=== PATIENT | male | born 1930 | race Caucasian/White ===

== ENCOUNTER 2017-06-21 09:56 | Observation (INO) | payer MEDICARE, BC ==
[2017-06-21] MEDS ORDERED: Acetaminophen 500 MG Tab PO PRN (10:56)
--- NOTE | 2017-06-21 11:03 | PCM.HP ---
H&P History of Present Illness - General Date of Service: 06/21/17 Admit Problem/Dx: Admission Diagnosis/Problem Admission Diagnosis/Problem Shortness of breath Source of Information: Patient History Limitations: Reports: No Limitations - History of Present Illness Initial Comments - Free Text/Narative: This is an 86 yo M here for shortness of breath on exertion, lightheadedness and burning in his throat the same sensation and feeling that he had last time he had a heart attack. Patient states the symptoms have since resolved. Patient denies any symptoms currently. Patient does have an allergy to aspirin but is on Plavix. Onset of Symptoms: Reports: Sudden Duration of Symptoms: Reports: Hour(s):, Resolved Prior to Arrival Location: Reports: Neck, Chest Quality: Reports: Same as Previous Episode Severity: Moderate - Related Data Allergies/Adverse Reactions: Allergies Allergy/AdvReac Type Severity Reaction Status Date / Time aspirin AdvReac Bleeding Verified 09/18/16 13:27 Home Medications: Home Meds Terazosin [Hytrin] 5 mg PO BID 06/26/13 [History] Metoprolol Succinate 12.5 mg PO DAILY 08/24/13 [History] Acetaminophen [Tylenol Extra Strength] 500 mg PO Q6HR PRN 09/18/16 [History] Benazepril HCl [Benazepril HCl] 5 mg PO DAILY 09/18/16 [History] Clopidogrel Bisulfate [Clopidogrel] 75 mg PO DAILY 09/18/16 [History] Docusate Sodium [Colace] 100 mg PO BID 09/18/16 [History] Fluticasone/Salmeterol [Advair 100-50 Diskus] 1 inh INH BID 09/18/16 [History] Omeprazole 40 mg PO DAILY 09/18/16 [History] Past Medical History HEENT History: Reports: Impaired Vision Cardiovascular History: Reports: Hypertension Respiratory History: Reports: Pneumonia, Recurrent, SOB Gastrointestinal History: Reports: GERD - Past Surgical History Cardiovascular Surgical History: Reports: Other (See Below) Social & Family History - Family History Family Medical History: Unobtainable - Tobacco Use Smoking Status *Q: Never Smoker Years of Tobacco use: 75 Second Hand Smoke Exposure: No - Alcohol Use Days Per Week of Alcohol Use: 0 - Recreational Drug Use Recreational Drug Use: No H&P Review of Systems - Review of Systems: Review Of Systems: ROS reveals no pertinent complaints other than HPI. Exam - Exam Exam: See Below - Exam General: Alert, Oriented HEENT: PERRLA, Conjunctiva Clear, EACs Clear Neck: Supple, Trachea Midline Lungs: Clear to Auscultation, Normal Respiratory Effort Cardiovascular: Regular Rate, Regular Rhythm GI/Abdominal Exam: Normal Bowel Sounds Extremities: Normal Inspection Peripheral Pulses: 2+: Dorsalis Pedis (L), Dorsalis Pedis (R) Skin: Warm, Dry, Intact *Q Meaningful Use (ADM) - VTE *Q VTE Criteria *Q: - Stroke *Q Stroke Criteria *Q: - AMI *Q AMI Criteria *Q: - Problem List (1) Coronary arteriosclerosis, CAD SNOMED Code(s): 88414839 ICD Code: I25.10 - ATHSCL HEART DISEASE OF [place] CORONARY ARTERY W/O ANG PCTRS Status: Chronic Priority: Medium Current Visit: Yes (2) Shortness of breath SNOMED Code(s): 097942554 ICD Code: R06.02 - SHORTNESS OF BREATH Status: Acute Priority: High Current Visit: Yes (3) Chest pain, rule out acute myocardial infarction SNOMED Code(s): 06447389 ICD Code: R07.9 - CHEST PAIN, UNSPECIFIED Status: Acute Priority: High Current Visit: Yes Problem List Initiated/Reviewed/Updated: Yes Orders Last 24hrs: Active Orders 24 hr Category Date Time Status Patient Status [ADT] Routine ADT 06/21/17 10:53 Active EKG Documentation Completion [RC] ASDIRECTED Care 06/21/17 10:32 Active Oxygen Therapy [RC] PRN Care 06/21/17 10:53 Active Peripheral IV Care [RC] . DIRECTED Care 06/21/17 10:28 Active Telemetry Monitoring [Cardiac Monitoring] [RC] .As Care 06/21/17 10:58 Ordered Directed Vital Signs [RC] Q4H Care 06/21/17 10:53 Active Chest 2V [CR] Routine Exams 06/21/17 10:33 Ordered CBC WITH AUTO DIFF [HEME] Stat Lab 06/21/17 10:55 Ordered COMPREHENSIVE METABOLIC PN,CMP [CHEM] Routine Lab 06/21/17 10:28 Ordered TROPONIN I [CHEM] Routine Lab 06/21/17 10:28 Ordered TROPONIN I [CHEM] Timed Lab 06/21/17 15:30 Ordered Acetaminophen [Tylenol Extra Strength] Med 06/21/17 10:56 Ordered 500 mg PO Q6HR PRN Benazepril [Lotensin] Med 06/22/17 08:00 Ordered 5 mg PO DAILY Clopidogrel [Plavix] Med 06/22/17 08:00 Ordered 75 mg PO DAILY Docusate Sodium [Colace] Med 06/21/17 20:00 Ordered 100 mg PO BID Fluticasone/Salmeterol [Advair 100-50 Diskus] Med 06/21/17 20:00 Ordered 1 inh INH BID Metoprolol Succinate [Toprol XL] Med 06/22/17 08:00 Ordered 12.5 mg PO DAILY Omeprazole Med 06/22/17 08:00 Ordered 40 mg PO DAILY Terazosin [Hytrin] Med 06/21/17 20:00 Ordered 5 mg PO BID EKG 12 Lead [EK] Routine Ther 06/21/17 10:32 Ordered Medication Orders Acetaminophen (Tylenol Extra Strength) 500 mg PO Q6HR PRN PRN Reason: Pain Benazepril HCl (Lotensin) 5 mg PO DAILY [facility] Clopidogrel Bisulfate (Plavix) 75 mg PO DAILY [facility] Docusate Sodium (Colace) 100 mg PO BID [facility] Metoprolol Succinate (Toprol Xl) 12.5 mg PO DAILY [facility] Non-Formulary Medication (Fluticasone/Salmeterol [Advair 100-50 Diskus]) 1 inh INH BID [facility] Non-Formulary Medication (Terazosin [Hytrin]) 5 mg PO BID [facility] Omeprazole (Omeprazole) 40 mg PO DAILY [facility] Assessment/Plan Comment:: Patient admitted to observation for [place] symptoms. Labs ordered with serial troponins. F/u troponins and workup.
[2017-06-21] MEDS ORDERED: Heparin Sodium/D5W 25,000 UNITS/500 ML BAG IV SCH ×2 (11:30→11:40)
[2017-06-21 11:42] VITALS: BP 131/83
[2017-06-21] MEDS ORDERED: Heparin Sodium 5,000 UNITS/0.5 ML Syringe IVPUSH ONE (11:46)
[2017-06-21] MEDS ORDERED: Aspirin 81 MG Tab.Chew PO SCH (12:00)
--- NOTE | 2017-06-21 19:49 | CR ---
DATE OF SERVICE: 06/21/17 CLINICAL DATA: chest pain PA AND LATERAL CHEST: Comparison is made to a prior exam dated 10/13/16. The heart size is at the upper limits of normal. The aorta is calcified and ectatic. There is a mass posterior to the heart containing gas and an air-fluid level consistent with a hiatal hernia. There is persistent pleural thickening of the right apex and a persistent mass- like density that appears unchanged. There is persistent blunting of the left costophrenic angle consistent with small left pleural effusion or pleural scar. No new abnormalities. [id number] MTDD
[2017-06-21] MEDS ORDERED: SALMETEROL INH SCH (20:00)
[2017-06-21] MEDS ORDERED: TERAZOSIN 5 MG PO SCH (20:00)
[2017-06-21] MEDS ORDERED: FLUTICASONE INH SCH (20:00)
[2017-06-21] MEDS ORDERED: Docusate Sodium 100 MG Cap PO SCH (20:00)
[2017-06-22] MEDS ORDERED: Clopidogrel 75 MG Tab PO SCH (08:00)
[2017-06-22] MEDS ORDERED: Metoprolol Succinate 25 MG Tab.ER PO SCH (08:00)
[2017-06-22] MEDS ORDERED: Benazepril 10 MG Tab PO SCH (08:00)
[2017-06-22] MEDS ORDERED: Omeprazole 40 MG Cap.CR PO SCH (08:00)
--- NOTE | 2017-07-08 17:09 | PCM.DCSUM1 ---
Discharge Summary - Discharge Data Discharge Date: 06/21/17 Discharge Disposition: DC/Tfer to Acute Hospital 02 Condition: Stable - Discharge Diagnosis/Problem(s) (1) Coronary arteriosclerosis, CAD SNOMED Code(s): 98366785 ICD Code: I25.10 - ATHSCL HEART DISEASE OF [place] CORONARY ARTERY W/O ANG PCTRS Status: Chronic Priority: Medium (2) Shortness of breath SNOMED Code(s): 323476623 ICD Code: R06.02 - SHORTNESS OF BREATH Status: Acute Priority: High (3) Chest pain, rule out acute myocardial infarction SNOMED Code(s): 17645450 ICD Code: R07.9 - CHEST PAIN, UNSPECIFIED Status: Acute Priority: High (4) Elevated troponin SNOMED Code(s): 795739716, 541375231 ICD Code: R74.8 - ABNORMAL LEVELS OF OTHER SERUM ENZYMES Status: Acute Priority: High - Patient Instructions Diet: NPO Activity: Bedrest Driving: Do Not Drive - Discharge Plan Home Medications: Home Meds Terazosin [Hytrin] 5 mg PO BID 06/26/13 [History] Metoprolol Succinate 12.5 mg PO DAILY 08/24/13 [History] Acetaminophen [Tylenol Extra Strength] 500 mg PO Q6HR PRN 09/18/16 [History] Benazepril HCl [Benazepril HCl] 5 mg PO DAILY 09/18/16 [History] Clopidogrel Bisulfate [Clopidogrel] 75 mg PO DAILY 09/18/16 [History] Docusate Sodium [Colace] 100 mg PO BID 09/18/16 [History] Fluticasone/Salmeterol [Advair 100-50 Diskus] 1 inh INH BID 09/18/16 [History] Omeprazole 40 mg PO DAILY 09/18/16 [History] - Discharge Summary/Plan Comment Discharge Summary/Plan Comment: Patient transferred to [facility] for Acute coronary syndrome. Accepting provider Dr. Brad cordon by [facility]. - Patient Data Vitals - Most Recent: Last Vital Signs Temp 36.6 C 06/21/17 11:39 Pulse 71 06/21/17 11:39 Resp 16 06/21/17 11:00 BP 131/83 06/21/17 11:39 Pulse Ox 96 06/21/17 11:39 Weight - Most Recent: 74.843 kg Med Orders - Current: Current Medications Discontinued Medications Acetaminophen (Tylenol Extra Strength) 500 mg PO Q6HR PRN PRN Reason: Pain Aspirin (Aspirin) 324 mg PO DAILY [facility] Last Admin: 06/21/17 12:04 Dose: Not Given Benazepril HCl (Lotensin) 5 mg PO DAILY [facility] Clopidogrel Bisulfate (Plavix) 75 mg PO DAILY [facility] Docusate Sodium (Colace) 100 mg PO BID [facility] Heparin Sodium (Porcine) (Heparin Sodium) 4,000 units IVPUSH .BOLUS ONE Stop: 06/21/17 11:47 Last Admin: 06/21/17 11:30 Dose: 4,000 units Heparin Sodium/Dextrose (Heparin 25,000 Units In D5w 500 Ml) 25,000 units in 500 mls @ 15.6 mls/hr IV TITRATE [facility]; 12 UNITS/KG/HR PRN Reason: Protocol Last Admin: 06/21/17 11:40 Dose: 12 units/kg/hr, 15.6 mls/hr Heparin Sodium/Dextrose (Heparin 25,000 Units In D5w 500 Ml) 25,000 units in 500 mls @ 15.6 mls/hr IV TITRATE AHMET; 12 UNITS/KG/HR PRN Reason: Protocol Metoprolol Succinate (Toprol Xl) 12.5 mg PO DAILY [facility] Non-Formulary Medication (Fluticasone/Salmeterol [Advair 100-50 Diskus]) 1 inh INH BID [facility] Non-Formulary Medication (Terazosin [Hytrin]) 5 mg PO BID [facility] Omeprazole (Omeprazole) 40 mg PO DAILY [facility] *Q Meaningful Use (DIS) - VTE *Q VTE Criteria *Q: - Stroke *Q Stroke Criteria *Q: - AMI *Q AMI Criteria *Q:
== END 2017-06-21 12:40 ==
LOC: LB.CLINIC 09:56 → LB.MS 10:53
PROVIDERS: ADMIT Family Medicine; ATTEND Family Medicine
DX: I25.10 Atherosclerotic heart disease of native coronary artery without angina pectoris (principal); R06.02 Shortness of breath; R07.9 Chest pain, unspecified; R74.8 Abnormal levels of other serum enzymes; I10 Essential (primary) hypertension; K21.9 Gastro-esophageal reflux disease without esophagitis; J18.9 Pneumonia, unspecified organism; Z79.899 Other long term (current) drug therapy; Z88.8 Allergy status to other drugs, medicaments and biological substances
CPT/HCPCS: 36415; 71046; 80053; 84484; 85025; 85730; 93005; 96374; G0378; J1644; 99236

== ENCOUNTER 2017-07-11 09:28 | Emergency (ER) | payer MEDICARE, BC ==
[2017-07-11 11:18] VITALS: BP 112/64
--- NOTE | 2017-07-11 17:13 | ER ---
HISTORY OF PRESENT ILLNESS: An 86-year-old male here with rectal bleeding with bowel movements. This happened 3 times since he got up this morning. He has not had any bleeding other than with the bowel movement. The patient denies any abdominal pain that is new. He states he did have some upper abdominal discomfort for the last couple of months, but that seems to have gone away. He has not been feeling sick lately and has not been running a fever. The patient had a non-STEMI SD about 2 weeks ago and stents were placed at that time. He is currently on Plavix, Coumadin, and aspirin. The patient does have a history of being allergic to aspirin with bleeding issues. OBJECTIVE: GENERAL APPEARANCE: The patient is awake and alert. No obvious distress. VITAL SIGNS: Reviewed as listed. Blood pressure 103/66, he is afebrile. Pulse is 97. Physical exam, abdomen is soft, nontender to palpation. Bowel sounds are present. SKIN: Warm and dry. Rectal exam reveals no rectal bleeding. He does have a small external hemorrhoid that is non-thrombosed. Digital rectal exam reveals no internal hemorrhoids. LAB AND X-RAY: Labs done today include a CBC showing a hemoglobin of 10.6, which is just slightly lower than his last hemoglobin level of 11, otherwise unremarkable. PT/INR, PT is 15.2, INR 1.6 which is therapeutic. Comprehensive metabolic panel is unremarkable. CT of the abdomen and pelvis was also obtained. There was a small amount of trace of fluid in the pelvis, otherwise unremarkable findings related to the rectal bleeding. He does have an abdominal aneurysm, which is slightly larger than the previous imaging study. DIAGNOSIS: Rectal bleeding with bowel movements. TREATMENT PLAN: I feel this is due to all of the blood thinners the patient is taking. He states that he has taken some of his pills this morning. He is not sure which one he takes in the morning and which one he takes in the evening. He is to hold all anticoagulation medications that he has not taken yet today. Tomorrow he is to also hold the Coumadin and aspirin. I do want the patient to follow up in the clinic in 2 days for recheck with his primary care provider whom he tells me is Dr. Medina. Followup should be sooner if his condition gets worse. CRS/MODL /[id number]
--- NOTE | 2017-07-11 18:47 | CT ---
DATE OF SERVICE: 07/11/2017 CLINICAL DATA: Rectal bleeding. UNENHANCED ABDOMEN AND PELVIS CT: Multislice acquisition through the abdomen and pelvis without IV or oral contrast was performed. Comparison is made to a prior abdomen and pelvic CT dated 09/15/2016. There are emphysematous changes in both lower lungs with fibrotic changes bilaterally. The heart size is within normal limits. There is a small pericardial effusion. There are coronary artery calcifications. There is a moderately large hiatal hernia. There is mural thickening within the body and fundus of the stomach. This is probably related to nondistention. Gastritis or a infiltrating process should at least be considered. The liver appears normal. The gallbladder appears normal. The spleen appears normal. The pancreas is mildly atrophic but otherwise is unremarkable. The right and left adrenals are stable. There are sharply transcribed fluid density lesions in both kidneys consistent with bilateral renal cysts. They were present on the prior exam and are unchanged. No nephrocalcinosis or nephrolithiasis. No hydronephrosis or hydroureter. The appendix is not identified. No evidence of appendicitis. There is a moderate amount of gas and stool present throughout the colon. The bladder is partially fluid filled. There is bladder wall thickening. Cystitis should be considered. There are numerous metallic implants within the prostate. There is a small amount of free fluid noted within the pelvis. No free air. There are atherosclerotic changes of the abdominal aorta. There is aneurysmal dilatation of the abdominal aorta. It measures 5.3 cm in diameter. It measured 5.0 cm on the prior study. No evidence of leakage. No adenopathy. There is a compression fracture of the L1 vertebrae, unchanged from the prior study. IMPRESSION: Multiple findings as discussed above. [id number] MTDD
== END 2017-07-11 11:46 | disposition home or self-care (01) ==
LOC: LB.ED 09:28
DX: K62.5 Hemorrhage of anus and rectum (principal); Z79.82 Long term (current) use of aspirin; Z79.01 Long term (current) use of anticoagulants; Z79.02 Long term (current) use of antithrombotics/antiplatelets; Z88.6 Allergy status to analgesic agent
CPT/HCPCS: 36415; 74176; 80053; 85025; 85610; 99283; 99284-25

== ENCOUNTER 2017-07-15 16:07 | Emergency (ER) | payer MEDICARE, BC ==
--- NOTE | 2017-07-15 17:07 | EDM.PDOC ---
ED HPI GENERAL MEDICAL PROBLEM - General Chief Complaint: Cardiovascular Problem Stated Complaint: NSTEMI [place] Time Seen by Provider: 07/15/17 16:07 Source of Information: Reports: Patient History Limitations: Reports: No Limitations - History of Present Illness INITIAL COMMENTS - FREE TEXT/NARRATIVE: This is a 86yo M who left AMA from the clinic and now returns for transfer to [place] for Cardiology and ICU admit. He was seen in clinic for dizziness three times this am and mid back pain between the scapula that lasted part of the morning and resolved prior to his clinic visit. He denies any health concerns or shortness of breath but was told to come in if there were any changes. His troponin levels were elevated but EKG showed minimal change. His daughter Franchesca convinced him to return to the ER. Please see clinic note as well. Onset: Sudden Duration: Minutes:, Resolved Prior to Arrival Location: Reports: Back, Generalized Quality: Reports: Ache Severity: Mild Improves with: Reports: None Worsens with: Reports: None Associated Symptoms: Reports: No Other Symptoms - Related Data Allergies Allergy/AdvReac Type Severity Reaction Status Date / Time aspirin AdvReac Bleeding Verified 07/11/17 09:48 Home Meds: Home Meds Terazosin [Hytrin] 5 mg PO BID 06/26/13 [History] Metoprolol Succinate 25 mg PO DAILY 08/24/13 [History] Acetaminophen [Tylenol Extra Strength] 500 mg PO Q6HR PRN 09/18/16 [History] Benazepril HCl [Benazepril HCl] 5 mg PO DAILY 09/18/16 [History] Clopidogrel Bisulfate [Clopidogrel] 75 mg PO DAILY 09/18/16 [History] Docusate Sodium [Colace] 100 mg PO QPM 09/18/16 [History] Fluticasone/Salmeterol [Advair 100-50 Diskus] 1 inh INH BID 09/18/16 [History] Omeprazole 40 mg PO DAILY 09/18/16 [History] Albuterol/Ipratropium [Combivent Respimat] 1 puff INH Q6H PRN 07/11/17 [History] Aspirin [Halfprin] 81 mg PO DAILY 07/11/17 [History] Furosemide [Furosemide] 20 mg PO DAILY 07/11/17 [History] Nitroglycerin [Nitrostat] 0.4 mg SL ASDIRECTED 07/11/17 [History] Polyethylene Glycol 3350 [MiraLAX] 17 gm PO DAILY PRN 07/11/17 [History] Warfarin Sodium [Jantoven] 5 mg PO ASDIRECTED 07/11/17 [History] atorvaSTATin [Lipitor] 40 mg PO BEDTIME 07/11/17 [History] Past Medical History HEENT History: Reports: Impaired Vision Cardiovascular History: Reports: Afib, Heart Failure, High Cholesterol, Hypertension, Stents Respiratory History: Reports: COPD, SOB Gastrointestinal History: Reports: GERD Musculoskeletal History: Reports: Fracture Hematologic History: Reports: Anemia Oncologic (Cancer) History: Reports: Lung - Past Surgical History Cardiovascular Surgical History: Reports: Coronary Artery Stent Musculoskeletal Surgical History: Reports: Knee Replacement Social & Family History - Family History Family Medical History: Unobtainable - Tobacco Use Smoking Status *Q: Light Tobacco Smoker Years of Tobacco use: 75 Packs/Tins Daily: 0.1 Second Hand Smoke Exposure: No - Caffeine Use Caffeine Use: Reports: Coffee - Alcohol Use Days Per Week of Alcohol Use: 0 - Recreational Drug Use Recreational Drug Use: No ED ROS GENERAL - Review of Systems Review Of Systems: ROS reveals no pertinent complaints other than HPI. ED EXAM, GENERAL - Physical Exam Exam: See Below Exam Limited By: No Limitations General Appearance: Alert, WD/WN, No Apparent Distress Ears: Normal External Exam, Normal Canal, Normal TMs, Hearing Loss Nose: Normal Inspection Throat/Mouth: Normal Inspection Head: Atraumatic, Normocephalic Neck: Normal Inspection, Supple, Non-Tender Respiratory/Chest: No Respiratory Distress, Lungs Clear, Normal Breath Sounds Cardiovascular: Normal Peripheral Pulses, Regular Rate, Rhythm GI/Abdominal: Normal Bowel Sounds Back Exam: Normal Inspection, Full Range of Motion Extremities: Normal Inspection Neurological: Alert, Oriented, CN II-XII Intact Psychiatric: Normal Affect, Normal Mood Skin Exam: Warm, Dry, Intact Departure - Departure Time of Disposition: 16:45 Disposition: DC/Tfer to Acute Hospital 02 Reason for Transfer *Q: Primary PCI Indicated Condition: Undetermined Clinical Impression: Acute coronary syndrome Aortic aneurysm Qualifiers: Aortic location: thoracoabdominal aorta Presence of rupture: without rupture Qualified Code(s): 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 Mazariegos [facility]. Dr. Bennett consulted. Discussed plan with daughter and per daughter patient has been off his anticoagulant for 2-3 days due to GI bleeding.
== END 2017-07-15 16:40 ==
LOC: LB.ED 16:07
DX: I24.9 Acute ischemic heart disease, unspecified (principal); I71.6 Thoracoabdominal aortic aneurysm, without rupture; I11.0 Hypertensive heart disease with heart failure; I50.9 Heart failure, unspecified; I48.91 Unspecified atrial fibrillation; F17.210 Nicotine dependence, cigarettes, uncomplicated; E78.00 Pure hypercholesterolemia, unspecified; J44.9 Chronic obstructive pulmonary disease, unspecified; Z79.01 Long term (current) use of anticoagulants; Z79.899 Other long term (current) drug therapy; Z88.6 Allergy status to analgesic agent
CPT/HCPCS: 99284; 99285; A0425; A0429

== ENCOUNTER 2017-08-04 10:32 | Emergency (ER) | payer MEDICARE, BC ==
[2017-08-04] MEDS ORDERED: Sodium Chloride 0.9% 10 ML Syringe FLUSH PRN (11:16)
--- NOTE | 2017-08-04 11:16 | EDM.PDOC ---
ED HPI GENERAL MEDICAL PROBLEM - General Stated Complaint: AK Time Seen by Provider: 08/04/17 10:35 Source of Information: Reports: Patient History Limitations: Reports: No Limitations - History of Present Illness INITIAL COMMENTS - FREE TEXT/NARRATIVE: According to patient, he claims he has been doing cardiac rehab every day and was feeling better. He claims that he had some chest pain last night and claims he had chest pain in the morning today. Apparently he has been dizziness since today morning. He did come to cardiac rehab and could not stand because of dizziness. His BP was 90/50mmhg. He was sent to clinic. He continues to complaint of dizziness even when he is sitting. No nausea or vomiting. no diaphoresis.He did have workup in the clinic. His CBC showed hemoglobin of 9.7, his EKG shows rate of 63 with multiple PVCs. Also his Troponin done today is elevated at 0.551. Pt claims that he has neck pain more around the nape, which he had last time he was transferred. Pt was moved to emergency room. Bilateral Upper Neck Pain Score (Numeric/FACES): 5 - Related Data Allergies Allergy/AdvReac Type Severity Reaction Status Date / Time aspirin AdvReac Bleeding Verified 07/11/17 09:48 Home Meds: Home Meds Terazosin [Hytrin] 5 mg PO BID 06/26/13 [History] Metoprolol Succinate 25 mg PO DAILY 08/24/13 [History] Acetaminophen [Tylenol Extra Strength] 500 mg PO Q6HR PRN 09/18/16 [History] Benazepril HCl [Benazepril HCl] 5 mg PO DAILY 09/18/16 [History] Clopidogrel Bisulfate [Clopidogrel] 75 mg PO DAILY 09/18/16 [History] Docusate Sodium [Colace] 100 mg PO QPM 09/18/16 [History] Fluticasone/Salmeterol [Advair 100-50 Diskus] 1 inh INH BID 09/18/16 [History] Omeprazole 40 mg PO DAILY 09/18/16 [History] Albuterol/Ipratropium [Combivent Respimat] 1 puff INH Q6H PRN 07/11/17 [History] Aspirin [Halfprin] 81 mg PO DAILY 07/11/17 [History] Furosemide [Furosemide] 20 mg PO DAILY 07/11/17 [History] Nitroglycerin [Nitrostat] 0.4 mg SL ASDIRECTED 07/11/17 [History] Polyethylene Glycol 3350 [MiraLAX] 17 gm PO DAILY PRN 07/11/17 [History] Warfarin Sodium [Jantoven] 5 mg PO ASDIRECTED 07/11/17 [History] atorvaSTATin [Lipitor] 40 mg PO BEDTIME 07/11/17 [History] Past Medical History HEENT History: Reports: Impaired Vision Cardiovascular History: Reports: Afib, Heart Failure, High Cholesterol, Hypertension, Stents Respiratory History: Reports: COPD, SOB Gastrointestinal History: Reports: GERD Musculoskeletal History: Reports: Fracture Hematologic History: Reports: Anemia Oncologic (Cancer) History: Reports: Lung - Past Surgical History Cardiovascular Surgical History: Reports: Coronary Artery Stent Musculoskeletal Surgical History: Reports: Knee Replacement Social & Family History - Family History Family Medical History: Unobtainable - Tobacco Use Smoking Status *Q: Light Tobacco Smoker Years of Tobacco use: 75 Packs/Tins Daily: 0.1 Second Hand Smoke Exposure: No - Caffeine Use Caffeine Use: Reports: Coffee - Alcohol Use Days Per Week of Alcohol Use: 0 - Recreational Drug Use Recreational Drug Use: No ED ROS GENERAL - Review of Systems Review Of Systems: See Below Constitutional: Denies: Fever, Chills, Malaise, Weakness HEENT: Denies: Rhinitis, Sinus Problem, Throat Pain, Throat Swelling Respiratory: Denies: Shortness of Breath, Cough, Sputum Cardiovascular: 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 Denies: Joint Pain, Joint Swelling Skin: Denies: Mottled, Pallor Neurological: Reports: Dizziness. Denies: Confusion, Headache, Numbness, Tingling, Weakness Psychiatric: Denies: Agitation, Anxiety, Confusion, Cravings ED EXAM, GENERAL - Physical Exam Exam: See Below Exam Limited By: No Limitations General Appearance: Alert, WD/WN, No Apparent Distress Eye Exam: Bilateral Eye: EOMI, PERRL Ears: Normal External Exam, Normal Canal, Hearing Grossly Normal, Normal TMs Ear Exam: Bilateral Ear: Auricle Normal, Canal Normal, TM normal Nose: Normal Inspection, Normal Mucosa, No Blood Throat/Mouth: Normal Inspection, Normal Lips, Normal Teeth, Normal Gums, Normal Oropharynx, Normal Voice, No Airway Compromise Head: Atraumatic, Normocephalic Neck: Normal Inspection, Supple, Non-Tender, Full Range of Motion Respiratory/Chest: No Respiratory Distress, Lungs Clear, Normal Breath Sounds, No Accessory Muscle Use, Chest Non-Tender Cardiovascular: Normal Peripheral Pulses, Regular Rate, Rhythm, No Edema, No Gallop, No JVD, No Murmur, No Rub Peripheral Pulses: 2+: Carotid (L), Carotid (R), Radial (L), Radial (R) GI/Abdominal: Normal Bowel Sounds, Soft, Non-Tender, No Organomegaly, No Distention, No Abnormal Bruit, No Mass Extremities: Normal Inspection, Normal Range of Motion, Non-Tender, Normal Capillary Refill, No Pedal Edema Neurological: Alert, Oriented, CN II-XII Intact, Normal Cognition, Normal Gait, Normal Reflexes, No Motor/Sensory Deficits EKG INTERPRETATION EKG Date: 08/04/17 Rhythm: NSR [place]: Normal P-Wave: Present QRS: Normal ST-T: Normal QT: Normal EKG Interpretation Comments: multiple PVCs Course - Vital Signs Text/Narrative:: Pt's Troponin was 0.551 and he did have chest pain last night and this morning. he has been having vague neck pain, which he claims he had when he recently had heart problems. His Chest Xray appears normal. His CBC shows hemoglobin of 9.7 . His INR was 1.4. I did contact [facility] and discuss patient with Dr. Brumfield ladle liner helper and discuss patient with him. His recommendation was to transfuse 1 unit of PRBC slowly, and have patient transferred to [place]. I have discussed patient with Dr. Kasia Vera, hospitalist transportation clerk who has agreed to accept patient. Pt has remained stable in the emergency room. His PRBC has been started. On lunchroom monitor he does throw frequents PVCs. He has been hemodynamically stable. Pt is planned for transfer by [facility] ambulance. Durther care per Dr. Vera and Dr. Brumfield. Last Recorded V/S: Last Vital Signs Temp 99.1 F 08/04/17 13:35 Pulse 62 08/04/17 13:35 Resp 14 08/04/17 13:35 BP 144/72 H 08/04/17 13:35 Pulse Ox 97 08/04/17 11:29 - Orders/Labs/Meds Orders: Active Orders 24 hr Category Date Time Status Cardiac Monitoring [RC] .As Directed Care 08/04/17 11:17 Active Oxygen Therapy Adult [Oxygen Therapy, ED] [RC] Care 08/04/17 11:25 Active ASDIRECTED Chest 1V Frontal [CR] Stat Exams 08/04/17 11:11 Taken Sodium Chloride 0.9% [Normal Saline] 1,000 ml Med 08/04/17 11:30 Active IV ASDIRECTED Sodium Chloride 0.9% [Saline Flush] Med 08/04/17 11:16 Active 10 ml FLUSH ASDIRECTED PRN Peripheral IV Insertion Adult [OM.PC] Routine Oth 08/04/17 11:16 Ordered Medication Orders Sodium Chloride (Normal Saline) 1,000 mls @ 30 mls/hr IV ASDIRECTED AHMET Sodium Chloride (Saline Flush) 10 ml FLUSH ASDIRECTED PRN PRN Reason: Keep Vein Open Labs: Laboratory Tests 08/04/17 08/04/17 Range/Units 10:58 10:59 Blood Type O NEGATIVE O NEGATIVE Gel Antibody Screen Negative Negative Crossmatch See Detail Meds: Medications Generic Name Dose Route Start Last Admin Trade Name Freq PRN Reason Stop Dose Admin Sodium Chloride 1,000 mls @ 30 mls/hr 08/04/17 11:30 Normal Saline IV ASDIRECTED AHMET Sodium Chloride 10 ml 08/04/17 11:16 Saline Flush FLUSH ASDIRECTED PRN Keep Vein Open Departure - Departure Time of Disposition: 15:00 Disposition: DC/Tfer to Acute Hospital 02 Condition: Fair Clinical Impression: Elevated troponin - Discharge Information Referrals: Jovanni Singh MD [Primary Care Provider] - - Problem List & Annotations (1) Elevated troponin SNOMED Code(s): 246155080, 168113498 Code(s): R74.8 - ABNORMAL LEVELS OF OTHER SERUM ENZYMES Status: Acute Priority: High Current Visit: Yes - Problem List Review Problem List Initiated/Reviewed/Updated: Yes - My Orders Last 24 Hours: My Active Orders 08/04/17 11:11 Chest 1V Frontal [CR] Stat 08/04/17 11:16 Sodium Chloride 0.9% [Saline Flush] 10 ml FLUSH ASDIRECTED PRN Peripheral IV Insertion Adult [OM.PC] Routine 08/04/17 11:17 Cardiac Monitoring [RC] .As Directed 08/04/17 11:25 Oxygen Therapy Adult [Oxygen Therapy, ED] [RC] ASDIRECTED 08/04/17 11:30 Sodium Chloride 0.9% [Normal Saline] 1,000 ml IV ASDIRECTED - Assessment/Plan Last 24 Hours: My Active Orders 08/04/17 11:11 Chest 1V Frontal [CR] Stat 08/04/17 11:16 Sodium Chloride 0.9% [Saline Flush] 10 ml FLUSH ASDIRECTED PRN Peripheral IV Insertion Adult [OM.PC] Routine 08/04/17 11:17 Cardiac Monitoring [RC] .As Directed 08/04/17 11:25 Oxygen Therapy Adult [Oxygen Therapy, ED] [RC] ASDIRECTED 08/04/17 11:30 Sodium Chloride 0.9% [Normal Saline] 1,000 ml IV ASDIRECTED Assessment:: Elevated troponin Plan: Pt's Troponin was 0.551 and he did have chest pain last night and this morning. he has been having vague neck pain, which he claims he had when he recently had heart problems. His Chest Xray appears normal. His CBC shows hemoglobin of 9.7 . His INR was 1.4. I did contact [facility] and discuss patient with Dr. Brumfield ladle liner helper and discuss patient with him. His recommendation was to transfuse 1 unit of PRBC slowly, and have patient transferred to [place]. I have discussed patient with Dr. Kasia Vera, hospitalist transportation clerk who has agreed to accept patient. Pt has remained stable in the emergency room. His PRBC has been started. On lunchroom monitor he does throw frequents PVCs. He has been hemodynamically stable. Pt is planned for transfer by [facility] ambulance. Durther care per Dr. Vera and Dr. Brumfield.
[2017-08-04] MEDS: Sodium Chloride 0.9% 1,000 ML IV SCH (12:30)
[2017-08-04 14:51] VITALS: BP 154/72
--- NOTE | 2017-08-04 17:41 | CR ---
DATE OF SERVICE: 08/04/17 CLINICAL DATA: chest pain AP PORTABLE CHEST: Comparison is made to a prior exam dated 07/15/17. The heart size is stable. There is a persistent mass-like density in the right apex, unchanged from the prior exam. The lungs are otherwise clear. No acute abnormalities. [id number] [facility]
== END 2017-08-05 15:30 ==
LOC: LB.ED 10:32
DX: R74.8 Abnormal levels of other serum enzymes (principal); I11.0 Hypertensive heart disease with heart failure; I50.9 Heart failure, unspecified; F17.210 Nicotine dependence, cigarettes, uncomplicated; Z88.6 Allergy status to analgesic agent; Z79.899 Other long term (current) drug therapy; Z79.82 Long term (current) use of aspirin
CPT/HCPCS: 36415; 36430; 71045; 86850; 86900; 86901; 86920; 86922; 96360; 96361; 99284; 99285-25; J7040; P9016

== ENCOUNTER 2017-10-11 09:28 | Emergency (ER) | payer MEDICARE, BC ==
[2017-10-11] MEDS ORDERED: Sodium Chloride 0.9% 500 ML IV ONE (09:34)
--- NOTE | 2017-10-11 09:54 | EDM.PDOC ---
ED HPI GENERAL MEDICAL PROBLEM - General Chief Complaint: Cardiovascular Problem Stated Complaint: Black tarry stools for 5 days Time Seen by Provider: 10/11/17 09:35 Source of Information: Reports: Patient History Limitations: Reports: No Limitations - History of Present Illness INITIAL COMMENTS - FREE TEXT/NARRATIVE: This is a 86yo M who initially presented to clinic and was brought to the ER for further work up and evaluation due to lightheadedness and low blood pressure. He states he just is not feeling well and can't fully describe his symptoms. He states he has been having very dark black tarry stools for the past 5 days. He denies any Chest pain and states he may be a little short of breath. He just does not feel right and feels some pressure of the neck. Onset: Gradual Duration: Day(s):, Getting Worse Location: Reports: Generalized Severity: Severe Improves with: Reports: None Worsens with: Reports: Movement Associated Symptoms: Reports: Weakness - Related Data Allergies Allergy/AdvReac Type Severity Reaction Status Date / Time aspirin AdvReac Bleeding Verified 07/11/17 09:48 Home Meds: Home Meds Terazosin [Hytrin] 5 mg PO BID 06/26/13 [History] Metoprolol Succinate 25 mg PO DAILY 08/24/13 [History] Acetaminophen [Tylenol Extra Strength] 500 mg PO Q6HR PRN 09/18/16 [History] Benazepril HCl 5 mg PO DAILY 09/18/16 [History] Clopidogrel Bisulfate [Clopidogrel] 75 mg PO DAILY 09/18/16 [History] Docusate Sodium [Colace] 100 mg PO QPM 09/18/16 [History] Fluticasone/Salmeterol [Advair 100-50 Diskus] 1 inh INH BID 09/18/16 [History] Omeprazole 40 mg PO DAILY 09/18/16 [History] Albuterol/Ipratropium [Combivent Respimat] 1 puff INH Q6H PRN 07/11/17 [History] Aspirin [Halfprin] 81 mg PO DAILY 07/11/17 [History] Furosemide 20 mg PO DAILY 07/11/17 [History] Nitroglycerin [Nitrostat] 0.4 mg SL ASDIRECTED 07/11/17 [History] Polyethylene Glycol 3350 [MiraLAX] 17 gm PO DAILY PRN 07/11/17 [History] Warfarin Sodium [Jantoven] 5 mg PO ASDIRECTED 07/11/17 [History] atorvaSTATin [Lipitor] 40 mg PO BEDTIME 07/11/17 [History] Past Medical History HEENT History: Reports: Impaired Vision Cardiovascular History: Reports: Afib, Heart Failure, High Cholesterol, Hypertension, Stents Respiratory History: Reports: COPD, SOB Gastrointestinal History: Reports: GERD Musculoskeletal History: Reports: Fracture Hematologic History: Reports: Anemia Oncologic (Cancer) History: Reports: Lung - Past Surgical History Cardiovascular Surgical History: Reports: Coronary Artery Stent Musculoskeletal Surgical History: Reports: Knee Replacement Social & Family History - Family History Family Medical History: Unobtainable - Tobacco Use Smoking Status *Q: Light Tobacco Smoker Years of Tobacco use: 75 Packs/Tins Daily: 0.1 Used Tobacco, but Quit: No Second Hand Smoke Exposure: No - Caffeine Use Caffeine Use: Reports: Coffee - Alcohol Use Days Per Week of Alcohol Use: 0 - Recreational Drug Use Recreational Drug Use: No ED ROS GENERAL - Review of Systems Review Of Systems: ROS reveals no pertinent complaints other than HPI. ED EXAM, GI/ABD - Physical Exam Exam: See Below Exam Limited By: No Limitations General Appearance: Alert, Mild Distress, Thin Eyes: Bilateral: EOMI, Pale Conjunctiva Ears: Normal External Exam Nose: Normal Inspection Throat/Mouth: Normal Inspection Head: Atraumatic, Normocephalic Neck: Normal Inspection Respiratory/Chest: No Respiratory Distress, Lungs Clear, Normal Breath Sounds Cardiovascular: Normal Peripheral Pulses, No Edema, No JVD, Extra Beats GI/Abdominal Exam: Normal Bowel Sounds Back Exam: Normal Inspection Extremities: Normal Inspection, Normal Range of Motion, Non-Tender, No Pedal Edema, Normal Capillary Refill Neurological: Alert, Oriented, CN II-XII Intact, Normal Cognition, Normal Reflexes, No Motor/Sensory Deficits Psychiatric: Normal Affect, Normal Mood Skin Exam: Dry, Intact, Cool, Pallor Course - Orders/Labs/Meds Orders: Active Orders 24 hr Category Date Time Status EKG Documentation Completion [RC] ASDIRECTED Care 10/11/17 09:33 Active Chest 1V Frontal [CR] Stat Exams 10/11/17 09:54 Taken RED BLOOD CELLS LP [BBK] Stat Lab 10/11/17 11:07 Ordered TYPE AND SCREEN [BBK] Stat Lab 04/30/18 11:07 Ordered Labs: Laboratory Tests 10/11/17 10/11/17 Range/Units 09:40 09:40 WBC 6.5 (4.0-11.0) K/uL RBC 3.27 L (4.50-6.50) M/uL Hgb 8.6 L D (13.0-18.0) g/dL Hct 28.3 L D (40.0-54.0) % MCV 87 (76-96) fL MCH 26.3 L (27.0-32.0) pg MCHC 30.4 L (31.0-35.0) g/dL RDW 16.4 H (11.0-16.0) % Plt Count 288 D (150-400) K/uL MPV 9.8 (6.0-10.0) fL Neut % (Auto) 72.1 H (45.0-70.0) % Lymph % (Auto) 17.2 L (20.0-40.0) % Elliott % (Auto) 7.4 (3.0-10.0) % Eos % (Auto) 2.8 (1.0-5.0) % Baso % (Auto) 0.5 (0.0-0.5) % Neut # (Auto) 4.69 (2.00-7.50) K/uL Lymph # (Auto) 1.12 L (1.50-4.00) K/uL Elliott # (Auto) 0.48 (0.20-0.80) K/uL Eos # (Auto) 0.18 (0.04-0.40) K/uL Baso # (Auto) 0.03 (0.02-0.10) K/uL Sodium 141 (136-145) mmol/L Potassium 3.9 (3.5-5.1) mmol/L Chloride 108 H (98-107) mmol/L Carbon Dioxide 27.0 (21.0-32.0) mmol/L Anion Gap 9.9 (5.0-15.0) mmol/L BUN 42 H D (8-26) mg/dL Creatinine 1.56 H D (0.70-1.30) mg/dL Est Cr Clr Drug Dosing TNP Estimated GFR (MDRD) 42 L (>60) MLS/MIN BUN/Creatinine Ratio 26.9 H (6-25) Glucose 130 H (74-100) mg/dL Calcium 8.1 L (8.5-10.1) mg/dL Total Bilirubin 0.4 (0.0-1.0) mg/dL AST 19 (15-37) U/L ALT 23 (12-78) U/L Alkaline Phosphatase 91 (46-116) U/L Troponin I 0.398 H* D (0.000-0.060) ng/mL B-Natriuretic Peptide 1226 H D (0-450) pg/mL Total Protein 6.9 (6.4-8.2) g/dL Albumin 3.4 (3.4-5.0) g/dL Globulin 3.5 (2.2-4.2) g/dL Albumin/Globulin Ratio 1.0 (0.8-2.0) Meds: Medications Discontinued Medications Generic Name Dose Route Start Last Admin Trade Name Freq PRN Reason Stop Dose Admin Sodium Chloride 500 mls @ 500 mls/hr 10/11/17 09:34 Normal Saline IV 10/11/17 10:33 .BOLUS ONE Pantoprazole Sodium 80 mg 10/11/17 11:09 Protonix Iv IVPUSH 10/11/17 11:10 .BOLUS ONE Pantoprazole Sodium Confirm 10/11/17 11:28 Protonix Iv Administered 10/11/17 11:29 Dose 80 mg .ROUTE .STK-MED ONE Departure - Departure Time of Disposition: 12:00 Disposition: DC/Tfer to Acute Hospital 02 Condition: Fair Clinical Impression: Troponin level elevated, Light-headedness, Melena Anemia Qualifiers: Anemia type: other cause Other causes of anemia: other cause, not classified Qualified Code(s): D64.89 - Other specified anemias Hypotension Qualifiers: Hypotension type: orthostatic hypotension Qualified Code(s): I95.1 - Orthostatic hypotension - Discharge Information Referrals: PCP,None [Primary Care Provider] - Forms: ED Department Discharge - Problem List & Annotations (1) Elevated troponin SNOMED Code(s): 069613045, 332351434, 742723549 Code(s): R74.8 - ABNORMAL LEVELS OF OTHER SERUM ENZYMES Status: Acute Priority: High Current Visit: Yes (2) Anemia SNOMED Code(s): 683254614 Code(s): D64.9 - ANEMIA, UNSPECIFIED Status: Acute Current Visit: Yes Qualifiers: Anemia type: other cause Other causes of anemia: other cause, not classified Qualified Code(s): D64.89 - Other specified anemias (3) Hypotension SNOMED Code(s): 40673135 Code(s): I95.9 - HYPOTENSION, UNSPECIFIED Status: Acute Current Visit: Yes Qualifiers: Hypotension type: orthostatic hypotension Qualified Code(s): I95.1 - Orthostatic hypotension (4) Light-headedness SNOMED Code(s): 414365700 Code(s): R42 - DIZZINESS AND GIDDINESS Status: Acute Current Visit: Yes (5) Melena SNOMED Code(s): 3558886 Code(s): K92.1 - MELENA Status: Acute Current Visit: Yes - Problem List Review Problem List Initiated/Reviewed/Updated: Yes - My Orders Last 24 Hours: My Active Orders 10/11/17 09:33 EKG Documentation Completion [RC] ASDIRECTED 10/11/17 09:54 Chest 1V Frontal [CR] Stat 10/11/17 11:07 RED BLOOD CELLS LP [BBK] Stat TYPE AND SCREEN [BBK] Stat - Assessment/Plan Last 24 Hours: My Active Orders 10/11/17 09:33 EKG Documentation Completion [RC] ASDIRECTED 10/11/17 09:54 Chest 1V Frontal [CR] Stat 10/11/17 11:07 RED BLOOD CELLS LP [BBK] Stat TYPE AND SCREEN [BBK] Stat Plan: Patient to be transferred to ICU bed [address] Aguilar and Dr. Brumfield. Patient was being typed and cross matched but due to pending transfer the type and cross match would delay transfer more than 30 min. We will continue gentle hydration as patient is stable and alert. Protonix IV given. No heparin drip started due to dark melena for the past 5 days. (Patient has been on Plavix and Jantoven and has been taking his medications as scheduled.)
[2017-10-11] MEDS ORDERED: Pantoprazole 40 MG Vial IVPUSH ONE (11:09)
[2017-10-11] MEDS ORDERED: Pantoprazole 40 MG Vial ONE (11:28)
--- NOTE | 2017-10-11 14:22 | CR ---
DATE OF SERVICE: 10/11/17 CLINICAL DATA: Shortness of breath PA CHEST: Comparison made to a prior exam dated 08/04/17. The heart size is stable. There is a moderate size hiatal hernia noted posterior to the heart. There is calcification of the aortic arch and thoracic aorta. There is a persistent mass like density in the right apex with apical pleural thickening on the right. It does not appear significantly changed from the prior exam. No new lung abnormalities. No pneumothorax. No pleural effusions. [id number] [facility]
== END 2017-10-11 12:05 ==
LOC: LB.ED 09:28
DX: I95.1 Orthostatic hypotension (principal); K92.1 Melena; D64.89 Other specified anemias; R74.8 Abnormal levels of other serum enzymes; F17.210 Nicotine dependence, cigarettes, uncomplicated; I11.0 Hypertensive heart disease with heart failure; I50.9 Heart failure, unspecified; K21.9 Gastro-esophageal reflux disease without esophagitis; I48.91 Unspecified atrial fibrillation; E78.00 Pure hypercholesterolemia, unspecified; Z79.01 Long term (current) use of anticoagulants; Z79.899 Other long term (current) drug therapy; Z88.6 Allergy status to analgesic agent
CPT/HCPCS: 36415; 71045; 80053; 83880; 84484; 85025; 93005; 99284; 99285-25

== ENCOUNTER 2018-08-08 07:52 | Emergency (ER) | payer BC, MEDICARE ==
[2018-08-08 08:14] VITALS: BP 143/72
--- NOTE | 2018-08-08 08:29 | EDM.PDOC ---
ED HPI GENERAL MEDICAL PROBLEM - General Chief Complaint: General Stated Complaint: NOT FEEL WELL Time Seen by Provider: 08/08/18 08:10 Source of Information: Reports: Patient, RN History Limitations: Reports: No Limitations - History of Present Illness INITIAL COMMENTS - FREE TEXT/NARRATIVE: 87 yr male presents with congestion and cough. States he had a tough weekend. States he had an appointment with cardiology last week and doesn't need to return for 1 year. He had an appointment last week on Wednesday and was started on Amoxicillin, and thinks he is taking it. States he was visiting his in skilled nursing care in [place] last week. general Pain Score (Numeric/FACES): 3 - Related Data Allergies Allergy/AdvReac Type Severity Reaction Status Date / Time aspirin AdvReac Bleeding Verified 03/26/18 11:08 Home Meds: Home Meds Terazosin [Hytrin] 5 mg PO BID 06/26/13 [History] Metoprolol Succinate 25 mg PO DAILY 08/24/13 [History] Acetaminophen [Tylenol Extra Strength] 500 mg PO Q6HR PRN 09/18/16 [History] Benazepril HCl 5 mg PO DAILY 09/18/16 [History] Clopidogrel Bisulfate [Clopidogrel] 75 mg PO DAILY 09/18/16 [History] Docusate Sodium [Colace] 100 mg PO QPM 09/18/16 [History] Fluticasone/Salmeterol [Advair 100-50 Diskus] 1 inh INH BID 09/18/16 [History] Omeprazole 40 mg PO DAILY 09/18/16 [History] Albuterol/Ipratropium [Combivent Respimat] 1 puff INH Q6H PRN 07/11/17 [History] Aspirin [Halfprin] 81 mg PO DAILY 07/11/17 [History] Furosemide 20 mg PO DAILY 07/11/17 [History] Nitroglycerin [Nitrostat] 0.4 mg SL ASDIRECTED 07/11/17 [History] Polyethylene Glycol 3350 [MiraLAX] 17 gm PO DAILY PRN 07/11/17 [History] Warfarin Sodium [Jantoven] 5 mg PO ASDIRECTED 07/11/17 [History] atorvaSTATin [Lipitor] 40 mg PO BEDTIME 07/11/17 [History] Albuterol/Ipratropium [DuoNeb 3.0-0.5 MG/3 ML] 3 ml .XX QID 14 Days #56 neb [Rx] Oseltamivir [Tamiflu] 75 mg PO BID 5 Days #10 cap 08/08/18 [Rx] Past Medical History HEENT History: Reports: Impaired Vision Cardiovascular History: Reports: Afib, Heart Failure, High Cholesterol, Hypertension, Stents Respiratory History: Reports: COPD, SOB Gastrointestinal History: Reports: GERD Musculoskeletal History: Reports: Fracture Hematologic History: Reports: Anemia Oncologic (Cancer) History: Reports: Lung - Past Surgical History Cardiovascular Surgical History: Reports: Coronary Artery Stent Musculoskeletal Surgical History: Reports: Knee Replacement Social & Family History - Family History Family Medical History: Unobtainable - Caffeine Use Caffeine Use: Reports: Coffee ED ROS GENERAL - Review of Systems Review Of Systems: See Below Constitutional: Reports: Fatigue HEENT: Reports: Glasses, Other (hard of hearing) Respiratory: Reports: Shortness of Breath, Wheezing, Cough Cardiovascular: Reports: No Symptoms. Denies: Chest Pain GI/Abdominal: Reports: No Symptoms. Denies: Abdominal Pain Musculoskeletal: Reports: Other (right shoulder muscle twitching) Skin: Reports: No Symptoms Neurological: Reports: No Symptoms Psychiatric: Reports: No Symptoms ED EXAM, GENERAL - Physical Exam Exam: See Below Exam Limited By: No Limitations General Appearance: Alert, No Apparent Distress Ears: Hearing Loss Nose: Normal Inspection, Normal Mucosa Throat/Mouth: Normal Voice, No Airway Compromise Head: Atraumatic, Normocephalic Neck: Normal Inspection, Supple, Non-Tender Respiratory/Chest: Rhonchi, Wheezing Cardiovascular: Normal Peripheral Pulses, Regular Rate, Rhythm, No Edema Peripheral Pulses: 2+: Radial (L), Radial (R) GI/Abdominal: Soft, Non-Tender Extremities: Normal Range of Motion, Non-Tender, No Pedal Edema Neurological: Alert, Oriented, Normal Cognition Psychiatric: Normal Affect, Normal Mood Skin Exam: Warm, Dry, Normal Color Course - Vital Signs Last Recorded V/S: Last Vital Signs Temp 99.7 F 08/08/18 08:08 Pulse 94 08/08/18 08:08 Resp 22 H 08/08/18 08:08 BP 143/72 H 08/08/18 08:08 Pulse Ox 95 08/08/18 08:08 - Orders/Labs/Meds Labs: Laboratory Tests 08/08/18 08/08/18 08/08/18 Range/Units 08:30 08:30 08:30 WBC 7.7 (4.0-11.0) K/uL RBC 4.02 L (4.50-6.50) M/uL Hgb 12.8 L (13.0-18.0) g/dL Hct 40.3 (40.0-54.0) % MCV 100 H (76-96) fL MCH 31.8 (27.0-32.0) pg MCHC 31.8 (31.0-35.0) g/dL RDW 13.5 (11.0-16.0) % Plt Count 132 L D (150-400) K/uL MPV 9.8 (6.0-10.0) fL Neut % (Auto) 81.2 H (45.0-70.0) % Lymph % (Auto) 9.2 L (20.0-40.0) % [place] % (Auto) 8.2 (3.0-10.0) % Eos % (Auto) 1.0 (1.0-5.0) % Baso % (Auto) 0.4 (0.0-0.5) % Neut # (Auto) 6.26 (2.00-7.50) K/uL Lymph # (Auto) 0.71 L (1.50-4.00) K/uL [place] # (Auto) 0.63 (0.20-0.80) K/uL Eos # (Auto) 0.08 (0.04-0.40) K/uL Baso # (Auto) 0.03 (0.02-0.10) K/uL Sodium 141 (136-145) mmol/L Potassium 3.9 (3.5-5.1) mmol/L Chloride 103 (98-107) mmol/L Carbon Dioxide 28.8 (21.0-32.0) mmol/L Anion Gap 13.1 (5.0-15.0) mmol/L BUN 34 H D (8-26) mg/dL Creatinine 1.53 H (0.70-1.30) mg/dL Est Cr Clr Drug Dosing TNP Estimated GFR (MDRD) 43 L (>60) MLS/MIN BUN/Creatinine Ratio 22.2 (6-25) Glucose 113 H (74-100) mg/dL Calcium 8.4 L (8.5-10.1) mg/dL Total Bilirubin 1.1 H D (0.0-1.0) mg/dL AST 25 (15-37) U/L ALT 22 (12-78) U/L Alkaline Phosphatase 70 (46-116) U/L B-Natriuretic Peptide 1997 H D (0-450) pg/mL Total Protein 6.7 (6.4-8.2) g/dL Albumin 3.2 L (3.4-5.0) g/dL Globulin 3.5 (2.2-4.2) g/dL Albumin/Globulin Ratio 0.9 (0.8-2.0) Meds: Medications Discontinued Medications Generic Name Dose Route Start Last Admin Trade Name Freq PRN Reason Stop Dose Admin Albuterol/Ipratropium 3 ml 08/08/18 08:29 08/08/18 08:34 Duoneb 3.0-0.5 Mg/3 Ml NEB 3 ml Q2H PRN Administration Wheezing - Re-Assessments/Exams Free Text/Narrative Re-Assessment/Exam: 08/08/18 09:56 Influenza A is positive today. Chest x-ray reviewed and no acute intrathoracic disease. He is being followed by oncology and cardiology. Will start pt on Tamiflu 1 tablet bid and nebulizer qid for 2 weeks dispensed. Recommend follow-up in week later this week. Pt is resting well and states understanding. Departure - Departure Time of Disposition: 10:35 Disposition: Home, Self-Care 01 Condition: Good Clinical Impression: Influenza A - Discharge Information *COPY OF PRESCRIPTION DRUG MONITORING REPORT IN PATIENT DOLLY: Not Applicable Prescriptions: Albuterol/Ipratropium [DuoNeb 3.0-0.5 MG/3 ML] 3 ml .XX QID 14 Days #56 neb Oseltamivir [Tamiflu] 75 mg PO BID 5 Days #10 cap Instructions: Oseltamivir capsules, Albuterol; Ipratropium solution for inhalation Referrals: PCP,None [Primary Care Provider] - Forms: ED Department Discharge Additional Instructions: Take the Tamiflu twice a day until the medication is gone. Use the nebulizers (breathing treatments) as needed for shortness of breath 4 times a day. If you have any questions or concerns please call the clinic [phone] or the hospital [phone]. - Assessment/Plan Plan: Influenza A is positive today. Chest x-ray reviewed and no acute intrathoracic disease. He is being followed by oncology and cardiology. Will start pt on Tamiflu 1 tablet bid and nebulizer qid for 2 weeks dispensed. Recommend follow- up in week later this week. Pt is resting well and states understanding. F/U in clinic in 3-4 days.
[2018-08-08] MEDS: Albuterol/Ipratropium 3.0-0.5 MG/3 ML Neb Soln NEB PRN (08:34)
--- NOTE | 2018-08-08 09:33 | CR ---
DATE OF SERVICE: 08/08/18 CLINICAL DATA: congestion, cough PA AND LATERAL CHEST: Comparison made to a prior exam dated 10/11/17. The heart size is stable. There is a cardiac pacer overlying the left chest with the distal pacer wires in the region of the right atrium and right ventricle. The aorta is calcified and ectatic. There is a moderate-sized hiatal hernia noted posterior to the heart. There is pleural thickening and fibrotic changes noted in the right apex. The lungs are otherwise clear. No significant changes from the prior study. No evidence of acute intrathoracic disease. [id number] [facility]
== END 2018-08-08 10:35 | disposition home or self-care (01) ==
LOC: LB.ED 07:52
DX: J10.1 Influenza due to other identified influenza virus with other respiratory manifestations (principal); I11.0 Hypertensive heart disease with heart failure; I50.9 Heart failure, unspecified; K21.9 Gastro-esophageal reflux disease without esophagitis; I48.91 Unspecified atrial fibrillation; Z79.899 Other long term (current) drug therapy; Z88.6 Allergy status to analgesic agent
CPT/HCPCS: 36415; 71046; 80053; 83880; 85025; 87804; 99284-25; J7620-GY

== ENCOUNTER 2018-08-14 09:52 | Emergency (ER) | payer MEDICARE ==
--- NOTE | 2018-08-14 10:39 | EDM.PDOC ---
ED HPI GENERAL MEDICAL PROBLEM - General Stated Complaint: flu sx, weakness Time Seen by Provider: 08/14/18 10:00 Source of Information: Reports: Patient History Limitations: Reports: No Limitations - History of Present Illness INITIAL COMMENTS - FREE TEXT/NARRATIVE: According to patient he claims he has been having nasal congestion and cough going on for past 2 wks now. Pt claims he is getting thick mucoid yellow sputum when he cough. No wheezing or shortness of breath. Claims he has been tired of coughing. No chest pain. Had fever twice in the past 2 wks. No bodyache. Pt claims that he was seen last Wednesday and he had positive infleunza A and treated with tamiflu. Does c/o sore stomach. No bloody stools or dark colored stools.No nausea or vomiting or diarrhea. Duration: Week(s): (2 wks) Location: Reports: Chest Quality: Reports: Other (cough) Severity: Moderate Improves with: Reports: None Worsens with: Reports: None Associated Symptoms: Reports: Cough, Fever/Chills, Weakness. Denies: Confusion , Chest Pain, Diaphoresis, Headaches, Nausea/Vomiting, Rash, Seizure, Shortness of Breath, Syncope - Related Data Allergies Allergy/AdvReac Type Severity Reaction Status Date / Time aspirin AdvReac Bleeding Verified 03/26/18 11:08 Home Meds: Home Meds Terazosin [Hytrin] 5 mg PO BID 06/26/13 [History] Metoprolol Succinate 25 mg PO DAILY 08/24/13 [History] Acetaminophen [Tylenol Extra Strength] 500 mg PO Q6HR PRN 09/18/16 [History] Benazepril HCl 5 mg PO DAILY 09/18/16 [History] Clopidogrel Bisulfate [Clopidogrel] 75 mg PO DAILY 09/18/16 [History] Docusate Sodium [Colace] 100 mg PO QPM 09/18/16 [History] Fluticasone/Salmeterol [Advair 100-50 Diskus] 1 inh INH BID 09/18/16 [History] Omeprazole 40 mg PO DAILY 09/18/16 [History] Albuterol/Ipratropium [Combivent Respimat] 1 puff INH Q6H PRN 07/11/17 [History] Aspirin [Halfprin] 81 mg PO DAILY 07/11/17 [History] Furosemide 20 mg PO DAILY 07/11/17 [History] Nitroglycerin [Nitrostat] 0.4 mg SL ASDIRECTED 07/11/17 [History] Polyethylene Glycol 3350 [MiraLAX] 17 gm PO DAILY PRN 07/11/17 [History] Warfarin Sodium [Jantoven] 5 mg PO ASDIRECTED 07/11/17 [History] atorvaSTATin [Lipitor] 40 mg PO BEDTIME 07/11/17 [History] Albuterol/Ipratropium [DuoNeb 3.0-0.5 MG/3 ML] 3 ml .XX QID 14 Days #56 neb [Rx] Oseltamivir [Tamiflu] 75 mg PO BID 5 Days #10 cap 08/08/18 [Rx] Past Medical History HEENT History: Reports: Impaired Vision Cardiovascular History: Reports: Afib, Heart Failure, High Cholesterol, Hypertension, Stents Respiratory History: Reports: COPD, SOB Gastrointestinal History: Reports: GERD Musculoskeletal History: Reports: Fracture Hematologic History: Reports: Anemia Oncologic (Cancer) History: Reports: Lung - Past Surgical History Cardiovascular Surgical History: Reports: Coronary Artery Stent Musculoskeletal Surgical History: Reports: Knee Replacement Social & Family History - Family History Family Medical History: Unobtainable - Caffeine Use Caffeine Use: Reports: Coffee ED ROS GENERAL - Review of Systems Review Of Systems: See Below Constitutional: Reports: Fever, Weakness. Denies: Chills, Malaise HEENT: Reports: Rhinitis. Denies: Ear Pain, Eye Discharge, Throat Pain, Throat Swelling Respiratory: Reports: Cough, Sputum. Denies: Shortness of Breath, Wheezing, Pleuritic Chest Pain, Hemoptysis Cardiovascular: Denies: Chest Pain, Lightheadedness GI/Abdominal: Reports: Abdominal Pain, Difficulty Swallowing, Flatus. Denies: Black Stool, Constipation, Diarrhea, Hematochezia, Melena, Nausea, Vomiting : Denies: Dysuria, Flank Pain Musculoskeletal: Denies: Joint Pain, Joint Swelling, Muscle Pain, Muscle Stiffness Skin: Denies: Bruising, Pruritis, Rash Neurological: Denies: Confusion, Dizziness, Headache, Numbness, Tingling ED EXAM, GENERAL - Physical Exam Exam: See Below Exam Limited By: No Limitations General Appearance: Alert, WD/WN, No Apparent Distress, Other (Ill appearance) Eye Exam: Bilateral Eye: EOMI, PERRL Ears: Normal External Exam, Normal Canal, Hearing Grossly Normal, Normal TMs Ear Exam: Bilateral Ear: Auricle Normal, Canal Normal, TM normal Nose: Normal Mucosa, No Blood, Nasal Drainage (mucoid ) Throat/Mouth: Normal Inspection, Normal Lips, Normal Teeth, Normal Gums, Normal Oropharynx, Normal Voice, No Airway Compromise Head: Atraumatic, Normocephalic Neck: Normal Inspection, Supple, Non-Tender, Full Range of Motion Respiratory/Chest: No Respiratory Distress, Lungs Clear, Normal Breath Sounds, No Accessory Muscle Use, Chest Non-Tender, Other (conducted upper airways sounds heard over lung gerber.) Cardiovascular: Normal Peripheral Pulses, Regular Rate, Rhythm, No Edema, No Gallop, No JVD, No Murmur, No Rub GI/Abdominal: Normal Bowel Sounds, Soft, No Organomegaly, No Distention, No Abnormal Bruit, No Mass, Other (mild epigastric discomfort) Back Exam: Normal Inspection, Full Range of Motion, NT Extremities: Normal Inspection, Normal Range of Motion, Non-Tender, Normal Capillary Refill, No Pedal Edema Neurological: Alert, Oriented, CN II-XII Intact, Normal Cognition, Normal Gait Course - Vital Signs Text/Narrative:: Pt's clinical exam is normal. His lungs are clear, other than conducted upper airway sounds. His SPO2 has been stable on room air. His CBC shows white count of 7K. His CMP appears normal and stable. Flu test is negative. His chest x-ray shows some chronic scarring of the lung. No new infiltrate noted. Pt has had on going bronchitis for 2 wks now. He did have positive influenza A, last week and was teated with Amox for same cough. As there is no clinical sign of bacterial infection, I have advised steam inhalations 2-3 times daily, and also Robitussin Dm 1-2 tsp every 6 hrs to help with expectorations. Rest and hydration. Followup in clinic next week, if symptoms worsen. - Orders/Labs/Meds Orders: Active Orders 24 hr Category Date Time Status Chest 2V [CR] Stat Exams 08/14/18 10:17 Ordered Labs: Laboratory Tests 08/14/18 08/14/18 Range/Units 10:20 10:20 WBC 7.8 (4.0-11.0) K/uL RBC 3.67 L (4.50-6.50) M/uL Hgb 11.9 L (13.0-18.0) g/dL Hct 36.4 L (40.0-54.0) % MCV 99 H (76-96) fL MCH 32.4 H (27.0-32.0) pg MCHC 32.7 (31.0-35.0) g/dL RDW 13.4 (11.0-16.0) % Plt Count 205 D (150-400) K/uL MPV 10.1 H (6.0-10.0) fL Neut % (Auto) 83.3 H (45.0-70.0) % Lymph % (Auto) 8.5 L (20.0-40.0) % [place] % (Auto) 7.5 (3.0-10.0) % Eos % (Auto) 0.4 L (1.0-5.0) % Baso % (Auto) 0.3 (0.0-0.5) % Neut # (Auto) 6.53 (2.00-7.50) K/uL Lymph # (Auto) 0.67 L (1.50-4.00) K/uL [place] # (Auto) 0.59 (0.20-0.80) K/uL Eos # (Auto) 0.03 L (0.04-0.40) K/uL Baso # (Auto) 0.02 (0.02-0.10) K/uL Sodium 141 (136-145) mmol/L Potassium 3.8 (3.5-5.1) mmol/L Chloride 103 (98-107) mmol/L Carbon Dioxide 28.3 (21.0-32.0) mmol/L Anion Gap 13.5 (5.0-15.0) mmol/L BUN 26 D (8-26) mg/dL Creatinine 1.44 H (0.70-1.30) mg/dL Est Cr Clr Drug Dosing TNP Estimated GFR (MDRD) 46 L (>60) MLS/MIN BUN/Creatinine Ratio 18.1 (6-25) Glucose 155 H D (74-100) mg/dL Calcium 8.1 L (8.5-10.1) mg/dL Total Bilirubin 0.8 (0.0-1.0) mg/dL AST 21 (15-37) U/L ALT 22 (12-78) U/L Alkaline Phosphatase 63 (46-116) U/L Total Protein 6.6 (6.4-8.2) g/dL Albumin 2.7 L (3.4-5.0) g/dL Globulin 3.9 (2.2-4.2) g/dL Albumin/Globulin Ratio 0.7 L (0.8-2.0) Departure - Departure Time of Disposition: 11:15 Disposition: Home, Self-Care 01 Condition: Fair Clinical Impression: Bronchitis - Discharge Information *PRESCRIPTION DRUG MONITORING PROGRAM REVIEWED*: Not Applicable *COPY OF PRESCRIPTION DRUG MONITORING REPORT IN PATIENT DOLLY: Not Applicable Referrals: PCP,None [Primary Care Provider] - Additional Instructions: Pt's clinical exam is normal. His lungs are clear, other than conducted upper airway sounds. His SPO2 has been stable on room air. His CBC shows white count of 7K. His CMP appears normal and stable. Flu test is negative. His chest x-ray shows some chronic scarring of the lung. No new infiltrate noted. Pt has had on going bronchitis for 2 wks now. He did have positive influenza A, last week and was teated with Amox for same cough. As there is no clinical sign of bacterial infection, I have advised steam inhalations 2-3 times daily, and also Robitussin Dm 1-2 tsp every 6 hrs to help with expectorations. Rest and hydration. Followup in clinic next week, if symptoms worsen. - Problem List & Annotations (1) Bronchitis SNOMED Code(s): 99668441 Code(s): J40 - BRONCHITIS, NOT SPECIFIED ACUTE OR CHRONIC Status: Acute Current Visit: Yes - Problem List Review Problem List Initiated/Reviewed/Updated: Yes - My Orders Last 24 Hours: My Active Orders 08/14/18 10:17 Chest 2V [CR] Stat - Assessment/Plan Last 24 Hours: My Active Orders 08/14/18 10:17 Chest 2V [CR] Stat Assessment:: Bronchitis Plan: Pt's clinical exam is normal. His lungs are clear, other than conducted upper airway sounds. His SPO2 has been stable on room air. His CBC shows white count of 7K. His CMP appears normal and stable. Flu test is negative. His chest x-ray shows some chronic scarring of the lung. No new infiltrate noted. Pt has had on going bronchitis for 2 wks now. He did have positive influenza A, last week and was teated with Amox for same cough. As there is no clinical sign of bacterial infection, I have advised steam inhalations 2-3 times daily, and also Robitussin Dm 1-2 tsp every 6 hrs to help with expectorations. Rest and hydration. Followup in clinic next week, if symptoms worsen.
--- NOTE | 2018-08-15 09:13 | CR ---
DATE OF SERVICE: 08/14/18 CLINICAL DATA: cough PA AND LATERAL CHEST: Comparison is made to a prior exam dated 08/08/18. The heart and lungs are stable. No evidence of acute intrathoracic disease. [id number] [facility]
== END 2018-08-14 11:10 | disposition home or self-care (01) ==
LOC: LB.ED 09:52
DX: J40 Bronchitis, not specified as acute or chronic (principal); I11.0 Hypertensive heart disease with heart failure; I50.9 Heart failure, unspecified; I48.91 Unspecified atrial fibrillation; Z88.8 Allergy status to other drugs, medicaments and biological substances; Z79.899 Other long term (current) drug therapy; Z95.5 Presence of coronary angioplasty implant and graft
CPT/HCPCS: 36415; 71046; 80053; 85025; 87804; 99282; 99283-25

== ENCOUNTER 2019-02-03 17:01 | Emergency (ER) | payer MEDICARE ==
[2019-02-03] MEDS ORDERED: Phenazopyridine 100 MG Tab ONE (17:15)
[2019-02-03 17:47] VITALS: BP 136/74
--- NOTE | 2019-02-04 10:06 | EDM.PDOC ---
ED HPI GENERAL MEDICAL PROBLEM - General Chief Complaint: General Stated Complaint: CONSTIPATION; PAIN Time Seen by Provider: 02/03/19 17:15 Source of Information: Reports: Patient History Limitations: Reports: No Limitations - History of Present Illness INITIAL COMMENTS - FREE TEXT/NARRATIVE: According to patient he has been constipated for past 3 days now. HE was seen in the clinic today and started on miralax , which he went home and took. He claims he has bee having suprapubic pain for past 1-2 days now. Also he has difficulty urinating and burning to urinate. No fever or chills. No nausea or vomiting. No back pain. Pt has had prostate cancer 25 years ago and treated with radiation therapy. He has had bloody urine and has followup with his urologist on Wednesday for possible cystocopy. He is on cipro 500mg BID per his urologist. Onset Date: 02/02/19 Location: Reports: Abdomen Quality: Reports: Ache Severity: Mild Improves with: Reports: None Worsens with: Reports: None Associated Symptoms: Denies: Confusion, Chest Pain, Cough, Diaphoresis, Fever/ Chills, Headaches, Rash, Seizure, Shortness of Breath, Syncope - Related Data Allergies Allergy/AdvReac Type Severity Reaction Status Date / Time aspirin AdvReac Bleeding Verified 03/26/18 11:08 Home Meds: Home Meds Terazosin [Hytrin] 5 mg PO BID 06/26/13 [History] Metoprolol Succinate 25 mg PO DAILY 08/24/13 [History] Acetaminophen [Tylenol Extra Strength] 500 mg PO Q6HR PRN 09/18/16 [History] Benazepril HCl 5 mg PO DAILY 09/18/16 [History] Clopidogrel Bisulfate [Clopidogrel] 75 mg PO DAILY 09/18/16 [History] Docusate Sodium [Colace] 100 mg PO QPM 09/18/16 [History] Fluticasone/Salmeterol [Advair 100-50 Diskus] 1 inh INH BID 09/18/16 [History] Omeprazole 40 mg PO DAILY 09/18/16 [History] Albuterol/Ipratropium [Combivent Respimat] 1 puff INH Q6H PRN 07/11/17 [History] Aspirin [Halfprin] 81 mg PO DAILY 07/11/17 [History] Furosemide 20 mg PO DAILY 07/11/17 [History] Nitroglycerin [Nitrostat] 0.4 mg SL ASDIRECTED 07/11/17 [History] Polyethylene Glycol 3350 [MiraLAX] 17 gm PO DAILY PRN 07/11/17 [History] Warfarin Sodium [Jantoven] 5 mg PO ASDIRECTED 07/11/17 [History] atorvaSTATin [Lipitor] 40 mg PO BEDTIME 07/11/17 [History] Albuterol/Ipratropium [DuoNeb 3.0-0.5 MG/3 ML] 3 ml .XX QID 14 Days #56 neb [Rx] Past Medical History HEENT History: Reports: Impaired Vision Cardiovascular History: Reports: Afib, Heart Failure, High Cholesterol, Hypertension, Stents Respiratory History: Reports: COPD, SOB Gastrointestinal History: Reports: GERD Musculoskeletal History: Reports: Fracture Hematologic History: Reports: Anemia Oncologic (Cancer) History: Reports: Lung - Past Surgical History Cardiovascular Surgical History: Reports: Coronary Artery Stent Musculoskeletal Surgical History: Reports: Knee Replacement Social & Family History - Family History Family Medical History: Unobtainable - Caffeine Use Caffeine Use: Reports: Coffee ED ROS GENERAL - Review of Systems Review Of Systems: See Below Constitutional: Denies: Fever, Chills HEENT: Denies: Rhinitis, Throat Pain Respiratory: Denies: Cough, Sputum Cardiovascular: Denies: Chest Pain, Lightheadedness GI/Abdominal: Reports: Abdominal Pain. Denies: Nausea, Vomiting : Reports: Dysuria, Frequency, Urgency Musculoskeletal: Denies: Joint Pain, Joint Swelling Skin: Denies: Bruising, Pruritis, Rash ED EXAM, GENERAL - Physical Exam Exam: See Below Exam Limited By: No Limitations General Appearance: Alert, WD/WN, No Apparent Distress, Anxious Eye Exam: Bilateral Eye: EOMI, PERRL Ears: Normal External Exam, Normal Canal, Hearing Grossly Normal, Normal TMs Ear Exam: Bilateral Ear: Auricle Normal, Canal Normal, TM normal Nose: Normal Inspection, Normal Mucosa, No Blood Throat/Mouth: Normal Inspection, Normal Lips, Normal Teeth, Normal Gums, Normal Oropharynx, Normal Voice, No Airway Compromise Head: Atraumatic, Normocephalic Neck: Normal Inspection, Supple, Non-Tender, Full Range of Motion Respiratory/Chest: No Respiratory Distress, Lungs Clear, Normal Breath Sounds, No Accessory Muscle Use, Chest Non-Tender Cardiovascular: Normal Peripheral Pulses, Regular Rate, Rhythm, No Edema, No Gallop, No JVD, No Murmur, No Rub GI/Abdominal: Normal Bowel Sounds, Soft, No Organomegaly, No Distention, No Abnormal Bruit, No Mass, Tender (suprapubic tenderness) Course - Vital Signs Text/Narrative:: Pt has had constipation for which he has been started on Miralax today and patient has taken. He has had dysuria and urgency , has to strain to urinate. He did give sample of urine and his UA shows blood, but now WBCs. HE has had hematuria for past few months and has been scheduled for possible cystoscopy by his urologist on Wednesday. Hence he was started on Pyridium 100mg BID for 3 days to help with dysuria.Advised to drink plenty of fluids. Continue cipro. Followup with his urologist on Wednesday. Last Recorded V/S: Last Vital Signs Temp 98.7 F 02/03/19 17:30 Pulse 66 02/03/19 17:30 Resp 20 02/03/19 17:30 BP 136/74 02/03/19 17:30 Pulse Ox 95 02/03/19 17:30 - Orders/Labs/Meds Labs: Laboratory Tests 02/03/19 Range/Units 17:26 Urine Color Other Urine Appearance Slightly cloudy (CLEAR) Urine pH 7.5 (5.0-8.0) Ur Specific [place] 1.020 (1.003-1.030) Urine Protein 100 H (NEGATIVE) mg/dL Urine Glucose (UA) Negative (NEGATIVE) mg/dL Urine Ketones Negative (NEGATIVE) mg/dL Urine Occult Blood Large H (NEGATIVE) Urine Nitrite Negative (NEGATIVE) Urine Bilirubin Negative (NEGATIVE) Urine Urobilinogen 1.0 (0.2-1.0) E.U./dL Ur Leukocyte Esterase Negative (NEGATIVE) Urine RBC Semi-packed H /HPF Urine WBC 5-10 H /HPF Ur Squamous Epith Cells Few /HPF Urine Bacteria Not seen /HPF Meds: Medications Discontinued Medications Generic Name Dose Route Start Last Admin Trade Name Freq PRN Reason Stop Dose Admin Phenazopyridine HCl 1,200 mg 02/03/19 17:15 Pyridium .ROUTE 02/03/19 17:16 .STK-MED ONE Departure - Departure Time of Disposition: 18:00 Disposition: Home, Self-Care 01 Condition: Fair Clinical Impression: Constipation, Dysuria - Discharge Information *PRESCRIPTION DRUG MONITORING PROGRAM REVIEWED*: Not Applicable *COPY OF PRESCRIPTION DRUG MONITORING REPORT IN PATIENT DOLLY: Not Applicable Instructions: Interstitial Cystitis, Cystoscopy Additional Instructions: Take Pyridium 100mg twice a day for 3 days. Continue to take Cipro as prescribed and follow up in [facility] for Cystoscopy. Return to ER or clinic if symptoms increase or any other c/o. - Problem List & Annotations (1) Hypotension SNOMED Code(s): 13006493 Code(s): I95.9 - HYPOTENSION, UNSPECIFIED Status: Acute Qualifiers: Hypotension type: orthostatic hypotension Qualified Code(s): I95.1 - Orthostatic hypotension (2) Constipation SNOMED Code(s): 28948221 Code(s): K59.00 - CONSTIPATION, UNSPECIFIED Status: Acute - Problem List Review Problem List Initiated/Reviewed/Updated: Yes - Assessment/Plan Assessment:: Constipation With Dysuria Plan: Pt has had constipation for which he has been started on Miralax today and patient has taken. He has had dysuria and urgency , has to strain to urinate. He did give sample of urine and his UA shows blood, but now WBCs. HE has had hematuria for past few months and has been scheduled for possible cystoscopy by his urologist on Wednesday. Hence he was started on Pyridium 100mg BID for 3 days to help with dysuria.Advised to drink plenty of fluids. Continue cipro. Followup with his urologist on Wednesday.
== END 2019-02-03 17:41 | disposition home or self-care (01) ==
LOC: LB.ED 17:01
DX: K59.00 Constipation, unspecified (principal); R30.0 Dysuria; I11.0 Hypertensive heart disease with heart failure; I50.9 Heart failure, unspecified; I48.91 Unspecified atrial fibrillation; J44.9 Chronic obstructive pulmonary disease, unspecified; Z85.46 Personal history of malignant neoplasm of prostate; Z88.6 Allergy status to analgesic agent; Z79.899 Other long term (current) drug therapy; Z79.82 Long term (current) use of aspirin; Z79.01 Long term (current) use of anticoagulants
CPT/HCPCS: 81001; 99283; A9270-GY

== ENCOUNTER 2019-02-03 23:58 | Emergency (ER) | payer MEDICARE ==
[2019-02-04 00:41] VITALS: BP 152/82
[2019-02-04] MEDS ORDERED: Lidocaine 2% Jelly 10 ML Urojet ONE (00:45)
--- NOTE | 2019-02-08 13:54 | EDM.PDOC ---
ED HPI GENERAL MEDICAL PROBLEM - General Chief Complaint: Genitourinary Problem Stated Complaint: can not urinate Time Seen by Provider: 02/04/19 00:15 Source of Information: Reports: Patient History Limitations: Reports: No Limitations - History of Present Illness INITIAL COMMENTS - FREE TEXT/NARRATIVE: Pt was seen earlier tonight with c/o suprapubic discomfort and dysuria. His urine showed blood , for which he has urologist appointment on Wednesday. Pt was discharged on Pyridium for his dysuria and discharged. He is here now as he has not been able to urinate since he went home. He feels like his bladder is distended. He claims his bladder has been spasming and very painful. Has urge to urinate , but cannot urinate. Also he has been constipated for past 3 days, but since he went home he has had small amounts of stools. Onset: Today Onset Date: 02/03/19 Location: Reports: Abdomen Quality: Reports: Ache Severity: Moderate Improves with: Reports: None Worsens with: Reports: None Associated Symptoms: Denies: Confusion, Chest Pain, Cough, Diaphoresis, Fever/ Chills, Headaches, Nausea/Vomiting, Rash, Seizure, Shortness of Breath, Syncope , Weakness Abdomen Pain Score (Numeric/FACES): 10 - Related Data Allergies Allergy/AdvReac Type Severity Reaction Status Date / Time aspirin AdvReac Bleeding Verified 03/26/18 11:08 Home Meds: Home Meds Terazosin [Hytrin] 5 mg PO BID 06/26/13 [History] Metoprolol Succinate 25 mg PO DAILY 08/24/13 [History] Acetaminophen [Tylenol Extra Strength] 500 mg PO Q6HR PRN 09/18/16 [History] Benazepril HCl 5 mg PO DAILY 09/18/16 [History] Clopidogrel Bisulfate [Clopidogrel] 75 mg PO DAILY 09/18/16 [History] Docusate Sodium [Colace] 100 mg PO QPM 09/18/16 [History] Fluticasone/Salmeterol [Advair 100-50 Diskus] 1 inh INH BID 09/18/16 [History] Omeprazole 40 mg PO DAILY 09/18/16 [History] Albuterol/Ipratropium [Combivent Respimat] 1 puff INH Q6H PRN 01/28/18 [History] Aspirin [Halfprin] 81 mg PO DAILY 07/11/17 [History] Furosemide 20 mg PO DAILY 07/11/17 [History] Nitroglycerin [Nitrostat] 0.4 mg SL ASDIRECTED 07/11/17 [History] Polyethylene Glycol 3350 [MiraLAX] 17 gm PO DAILY PRN 07/11/17 [History] Warfarin Sodium [Jantoven] 5 mg PO ASDIRECTED 07/11/17 [History] atorvaSTATin [Lipitor] 40 mg PO BEDTIME 07/11/17 [History] Albuterol/Ipratropium [DuoNeb 3.0-0.5 MG/3 ML] 3 ml .XX QID 14 Days #56 neb [Rx] Past Medical History HEENT History: Reports: Impaired Vision Cardiovascular History: Reports: Afib, Heart Failure, High Cholesterol, Hypertension, Stents Respiratory History: Reports: COPD, SOB Gastrointestinal History: Reports: GERD Musculoskeletal History: Reports: Fracture Hematologic History: Reports: Anemia Oncologic (Cancer) History: Reports: Lung - Past Surgical History Cardiovascular Surgical History: Reports: Coronary Artery Stent Musculoskeletal Surgical History: Reports: Knee Replacement Social & Family History - Family History Family Medical History: Unobtainable - Caffeine Use Caffeine Use: Reports: Coffee ED ROS GENERAL - Review of Systems Review Of Systems: See Below Constitutional: Denies: Fever, Chills HEENT: Denies: Ear Pain, Rhinitis, Throat Pain Respiratory: Denies: Shortness of Breath, Cough, Sputum Cardiovascular: Denies: Chest Pain, Dyspnea on Exertion, Edema, Lightheadedness , Syncope Endocrine: Denies: Fatigue GI/Abdominal: Reports: Abdominal Pain. Denies: Nausea, Vomiting : Reports: Dysuria, Urgency, Urinary Retention Musculoskeletal: Denies: Joint Pain, Joint Swelling Skin: Denies: Bruising, Pruritis, Rash Neurological: Denies: Dizziness, Headache, Numbness Psychiatric: Reports: Agitation. Denies: Anxiety, Confusion ED EXAM, GENERAL - Physical Exam Exam: See Below Exam Limited By: No Limitations General Appearance: Alert, WD/WN, Mild Distress Eye Exam: Bilateral Eye: EOMI, PERRL Ears: Normal External Exam, Normal Canal, Hearing Grossly Normal, Normal TMs Ear Exam: Bilateral Ear: Auricle Normal, Canal Normal, TM normal Nose: Normal Inspection, Normal Mucosa, No Blood Throat/Mouth: Normal Inspection, Normal Lips, Normal Teeth, Normal Gums, Normal Oropharynx, Normal Voice, No Airway Compromise Head: Atraumatic, Normocephalic Neck: Normal Inspection, Supple, Non-Tender, Full Range of Motion Respiratory/Chest: No Respiratory Distress, Lungs Clear, Normal Breath Sounds, No Accessory Muscle Use, Chest Non-Tender Cardiovascular: Normal Peripheral Pulses, Regular Rate, Rhythm, No Edema, No Gallop, No JVD, No Murmur, No Rub GI/Abdominal: Normal Bowel Sounds, Soft, No Organomegaly, No Abnormal Bruit, No Mass, Tender (There is tense spuprapubic tense mass, appears like distended bladder) Back Exam: Normal Inspection, Full Range of Motion. No: CVA Tenderness (R), CVA Tenderness (L) Extremities: Normal Inspection, Normal Range of Motion, Normal Capillary Refill Course - Vital Signs Text/Narrative:: Pt was just seen in the emergency room 8 hrs ago for dysuria. His Urine was negative for injection, other then blood in the urine and dysuria. He already has been on cipro form his urologist. Hence pyridium was added and discharged. He is back with bladder distension. Tried Goodwin's catheter, but could not pass it. Caude Catheter was placed, which went into the bladder and drained about 900cc of urine. Pt does feel better and relieved. II have advised patient to keep the catheter in place until he see Urologist on Wednesday. Pt does know how to use the catheter. Advised to continue Cipro, could stop Pyridium. Returns to emergency room if pain or symptoms worsen. Last Recorded V/S: Last Vital Signs Temp 98.9 F 02/04/19 00:27 Pulse 79 02/04/19 00:27 Resp 16 02/04/19 00:27 BP 152/82 H 02/04/19 00:41 Pulse Ox 95 02/04/19 00:27 - Orders/Labs/Meds Meds: Medications Discontinued Medications Generic Name Dose Route Start Last Admin Trade Name Freq PRN Reason Stop Dose Admin Lidocaine HCl 10 ml 02/04/19 00:45 Xylocaine 2% Jelly .ROUTE 02/04/19 00:46 .STK-MED ONE Departure - Departure Time of Disposition: 01:00 Disposition: Home, Self-Care 01 Condition: Fair Clinical Impression: Urinary obstruction - Discharge Information *PRESCRIPTION DRUG MONITORING PROGRAM REVIEWED*: Not Applicable *COPY OF PRESCRIPTION DRUG MONITORING REPORT IN PATIENT DOLLY: Not Applicable Instructions: Indwelling Urinary Catheter Care, Adult, [id number] Forms: ED Department Discharge Additional Instructions: Leave the catheter in place until your clinic visit in [place] on Wednesday. Continue to take the antibiotic, Cipro but you can stop taking the pyridium that you got from Dr. Lazar earlier. If you have any questions or concerns please call the hospital back at [phone] - Problem List & Annotations (1) Urinary obstruction SNOMED Code(s): 6875318 Code(s): N13.9 - OBSTRUCTIVE AND REFLUX UROPATHY, UNSPECIFIED Status: Acute - Problem List Review Problem List Initiated/Reviewed/Updated: Yes - Assessment/Plan Assessment:: Acute urinary obstruction Plan: Pt was just seen in the emergency room 8 hrs ago for dysuria. His Urine was negative for injection, other then blood in the urine and dysuria. He already has been on cipro form his urologist. Hence pyridium was added and discharged. He is back with bladder distension. Tried Goodwin's catheter, but could not pass it. Caude Catheter was placed, which went into the bladder and drained about 900cc of urine. Pt does feel better and relieved. II have advised patient to keep the catheter in place until he see Urologist on Wednesday. Pt does know how to use the catheter. Advised to continue Cipro, could stop Pyridium. Returns to emergency room if pain or symptoms worsen.
== END 2019-02-04 01:10 | disposition home or self-care (01) ==
LOC: LB.ED 23:58
DX: N13.9 Obstructive and reflux uropathy, unspecified (principal); I11.0 Hypertensive heart disease with heart failure; I50.9 Heart failure, unspecified; I48.91 Unspecified atrial fibrillation; J44.9 Chronic obstructive pulmonary disease, unspecified; Z85.46 Personal history of malignant neoplasm of prostate; Z88.6 Allergy status to analgesic agent; Z79.899 Other long term (current) drug therapy; Z79.82 Long term (current) use of aspirin; Z79.01 Long term (current) use of anticoagulants
CPT/HCPCS: 51703; 51798; 81001; 99283; 99284; A9270

== ENCOUNTER 2019-04-14 17:00 | Emergency (ER) | payer MEDICARE ==
[2019-04-14 17:52] VITALS: BP 114/75; PULSE 73
--- NOTE | 2019-05-05 16:06 | EDM.PDOC ---
ED HPI GENERAL MEDICAL PROBLEM - General Time Seen by Provider: 04/14/19 17:30 Source of Information: Reports: Patient History Limitations: Reports: No Limitations - History of Present Illness INITIAL COMMENTS - FREE TEXT/NARRATIVE: This is a 88 yo M here for concerns of urinary fullness. He denies any other issues at this time. He has had recent cystoscopy and lei catheter placement and removal. Onset: Sudden Duration: Hour(s): Location: Reports: Abdomen - Related Data Allergies Allergy/AdvReac Type Severity Reaction Status Date / Time aspirin AdvReac Bleeding Verified 03/26/18 11:08 Home Meds: Home Meds Terazosin [Hytrin] 5 mg PO BID 06/26/13 [History] Metoprolol Succinate 25 mg PO DAILY 08/24/13 [History] Acetaminophen [Tylenol Extra Strength] 500 mg PO Q6HR PRN 09/18/16 [History] Benazepril HCl 5 mg PO DAILY 09/18/16 [History] Clopidogrel Bisulfate [Clopidogrel] 75 mg PO DAILY 09/18/16 [History] Docusate Sodium [Colace] 100 mg PO QPM 09/18/16 [History] Fluticasone/Salmeterol [Advair 100-50 Diskus] 1 inh INH BID 09/18/16 [History] Omeprazole 40 mg PO DAILY 09/18/16 [History] Albuterol/Ipratropium [Combivent Respimat] 1 puff INH Q6H PRN 07/11/17 [History] Aspirin [Halfprin] 81 mg PO DAILY 07/11/17 [History] Furosemide 20 mg PO DAILY 07/11/17 [History] Nitroglycerin [Nitrostat] 0.4 mg SL ASDIRECTED 07/11/17 [History] Polyethylene Glycol 3350 [MiraLAX] 17 gm PO DAILY PRN 07/11/17 [History] Warfarin Sodium [Jantoven] 5 mg PO ASDIRECTED 07/11/17 [History] atorvaSTATin [Lipitor] 40 mg PO BEDTIME 07/11/17 [History] Albuterol/Ipratropium [DuoNeb 3.0-0.5 MG/3 ML] 3 ml .XX QID 14 Days #56 neb [Rx] Past Medical History HEENT History: Reports: Impaired Vision Cardiovascular History: Reports: Afib, Heart Failure, High Cholesterol, Hypertension, Stents Respiratory History: Reports: COPD, SOB Gastrointestinal History: Reports: GERD Musculoskeletal History: Reports: Fracture Hematologic History: Reports: Anemia Oncologic (Cancer) History: Reports: Lung - Past Surgical History Cardiovascular Surgical History: Reports: Coronary Artery Stent Musculoskeletal Surgical History: Reports: Knee Replacement Social & Family History - Family History Family Medical History: Unobtainable - Caffeine Use Caffeine Use: Reports: Coffee ED ROS GENERAL - Review of Systems Review Of Systems: Comprehensive ROS is negative, except as noted in HPI. ED EXAM, RENAL/ - Physical Exam Exam: See Below Exam Limited By: No Limitations General Appearance: Alert, WD/WN, No Apparent Distress Ears: Normal External Exam Nose: Normal Inspection Throat/Mouth: Normal Inspection Head: Atraumatic, Normocephalic Neck: Normal Inspection Respiratory/Chest: No Respiratory Distress Cardiovascular: Normal Peripheral Pulses, Regular Rate, Rhythm GI/Abdominal: Normal Bowel Sounds Course - Vital Signs Last Recorded V/S: Last Vital Signs Temp 37.0 C 04/14/19 17:51 Pulse 73 04/14/19 17:51 Resp 16 04/14/19 17:51 BP 114/75 04/14/19 17:51 Pulse Ox 97 04/14/19 17:51 Departure - Departure Time of Disposition: 18:00 Disposition: Home, Self-Care 01 Condition: Good Clinical Impression: Urinary hesitancy - Discharge Information Instructions: Acute Urinary Retention, Male, [id number] Care Plan Goals: Continue with current plan of care, return to ER or clinic with any additional questions or concerns. Take antibiotics and pyridium as previously ordered by your provider. - Problem List & Annotations (1) Urinary hesitancy SNOMED Code(s): 9307081 Code(s): R39.11 - HESITANCY OF MICTURITION Status: Acute - Problem List Review Problem List Initiated/Reviewed/Updated: Yes - Assessment/Plan Plan: Counseled on supportive care and close f/u with URology. Discussed f/u as needed in ER or clinic. Patient was able to void very well prior to d/c.
== END 2019-04-14 17:46 | disposition home or self-care (01) ==
LOC: LB.ED 17:00
DX: R39.11 Hesitancy of micturition (principal); I48.91 Unspecified atrial fibrillation; I11.0 Hypertensive heart disease with heart failure; I50.9 Heart failure, unspecified; E78.00 Pure hypercholesterolemia, unspecified; J44.9 Chronic obstructive pulmonary disease, unspecified; K21.9 Gastro-esophageal reflux disease without esophagitis; Z88.6 Allergy status to analgesic agent; Z79.02 Long term (current) use of antithrombotics/antiplatelets; Z79.51 Long term (current) use of inhaled steroids; Z79.899 Other long term (current) drug therapy; Z79.82 Long term (current) use of aspirin; Z79.01 Long term (current) use of anticoagulants
CPT/HCPCS: 99282; 99283

== ENCOUNTER 2019-04-29 06:43 | Emergency (ER) | payer MEDICARE ==
[2019-04-29 08:56] VITALS: BP 130/78; PULSE 67
[2019-04-29] MEDS ORDERED: Acetaminophen 325 MG Tab ONE (09:11)
[2019-04-29] MEDS ORDERED: Acetaminophen 325 MG Tab PO ONE (09:40)
--- NOTE | 2019-04-29 12:17 | ER ---
REASON FOR EMERGENCY ROOM VISIT: Blood in urine. HISTORY: This 88-year-old gentleman underwent transurethral resection of multiple bladder tumors in [place] approximately 1 month ago. He has had a number of recurrent bleeding episodes since then, which have cleared up. On a couple of these episodes, he has returned to the emergency room with blood in his urine and this cleared up with the passage of a Goodwin catheter for a period of time to enable his bladder to rest. Approximately 1 week ago, he had a bleeding episode which cleared spontaneously for a few days and then it started up again 3 days ago. He states he has been passing more clots and that became worse last night. He has not had any fever or chills. 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 PAST MEDICAL HISTORY: Significant for 1. Acute coronary syndrome. 2. Aortic aneurysm. 3. Constipation. 4. History of lumbar compression fractures. MEDICATIONS: These were reviewed. Please see electronic medical record. Atorvastatin, terazosin, polyethylene glycol p.r.n., omeprazole, nitroglycerin p.r.n., metoprolol, furosemide, fluticasone-salmeterol, docusate, clopidogrel, benazepril, aspirin, albuterol p.r.n., and Tylenol p.r.n. ALLERGIES: NONE TO MEDICATIONS. REVIEW OF SYSTEMS: Pertinent positives and negatives as listed above. PHYSICAL EXAMINATION: GENERAL: He is somewhat uncomfortable, but he is alert and cooperative, and in no acute distress. VITAL SIGNS: He is afebrile. Blood pressure is 130/78, pulse rate is 67, respiratory rate 16, and O2 sats 97% on room air. HEENT: Unremarkable. CHEST: Clear. CARDIAC: Regular rate without murmur. ABDOMEN: Soft. He does have some tenderness to deep palpation in the suprapubic area. : Normal external male. EXTREMITIES: [place] and warm with posterior tibialis posterior pulses palpable. No edema. LABORATORY: His WBC is 6500, hemoglobin is 11.9. His CMP shows that his electrolytes are normal. His BUN is 34 and his creatinine is 1.2 with an estimated GFR of 56. Grossly his urine is bloody with a large amount of occult blood and packed with rbc's with very few wbc's consistent with a significant amount of gross hematuria. His PT is 10.8. His INR is 1.1. IMPRESSION: Hematuria, gross, secondary to bladder tumors and recent transurethral resection of a bladder tumour. PLAN: We went ahead and placed a 16-[place] red rubber Goodwin catheter and inflated the balloon. He does have a urethral stricture approximately just at the level of the distal urethra 1-2 cm from the urethral meatus. I was able to pass this catheter through this, nonetheless, the bladder did contain grossly bloody urine, but no clots were evident. I irrigated him with 50 mL of sterile water x4 and withdrew all the irrigants and his urine began to clear quite substantially to the point where it is only faintly bloody after that small amount. No clots could be retrieved from this. He was uncomfortable whenever the bladder was irrigated, but this discomfort was only transient and relieved once the bladder was left in place. We did scan his bladder prior to placement of the catheter and he only had approximately 20 mL of residual at that time. The patient's daughter and the patient are both aware that it is important he be followed up with his urologist in light of the fact that his bladder is said to be quite thin walled and he has all these bladder tumors that are the source of his problem. It is difficult to do much for him beyond what we have already done given that set of circumstances. They understand and agree with this plan. He does know how to care for his catheter. The nurse re-instructed him and stressed the importance of keeping the leg bag emptied. COLETTE/SCOTT /[id number]
== END 2019-04-29 09:52 | disposition home or self-care (01) ==
LOC: LB.ED 06:43
DX: R31.0 Gross hematuria (principal); D49.4 Neoplasm of unspecified behavior of bladder; Z90.79 Acquired absence of other genital organ(s)
CPT/HCPCS: 36415; 51798; 80053; 81001; 85025; 85610; 99283; 99283-25; A9270-GY